=== PATIENT | male | born 1990 | race Two or more races ===

== ENCOUNTER 2022-08-15 09:59 | Emergency (ER) | payer SELFPAY ==
[~2022-08-15] VITALS: Ht 162.6 cm; Wt 83.9 kg
--- NOTE | 2022-08-15 10:11 | NUR ---
WALKED INTO ER C/O NAUSEA AND VOMITING S/P DRINKING ALCOHOL FOR THE PAST 2 DAYS. PT IS BREATHING EVEN AND UNLABORED. STEADY GAIT. AAOX4. CONNECTED TO THE MONITOR. AWAITING MD ALVARADO
--- NOTE | 2022-08-15 10:28 | NUR ---
AT BEDSIDE FOR EVAL
[2022-08-15] MEDS ORDERED: ONDANSETRON HCL/PF 4 MG/2 ML VIAL IVP ONE (10:30)
[2022-08-15] MEDS ORDERED: FAMOTIDINE/PF INJ 20 MG/2 ML VIAL IV ONE ×2 (10:30→10:33)
[2022-08-15] MEDS ORDERED: IV NS 0.9% 1,000 ML BAG IV ONE (10:30)
[2022-08-15] MEDS ORDERED: LORAZEPAM INJ 2 MG/ML VIAL IV ONE (10:30)
[2022-08-15] MEDS ORDERED: ONDANSETRON HCL/PF 4 MG/2 ML VIAL ONE (10:32)
[2022-08-15] MEDS ORDERED: LORAZEPAM INJ 2 MG/ML VIAL ONE (10:33)
--- NOTE | 2022-08-15 10:50 | NUR ---
ESTABLISHED IV ACCESS 18G RIGHT WRIST. BLOOD DRAWN AND SENT TO LAB.
[2022-08-15 11:14] LABS: ALBUMIN 4.6 g/dL (3.4-5.0); BASOPHILS # (AUTO) 0.1 K/uL (0.0-0.2); BASOPHILS % (AUTO) 0.6 % (0.0-2.0); BILIRUBIN,DIRECT 0.4 mg/dL (0.0-0.2); BILIRUBIN,TOTAL 2.9 mg/dL (0.2-1.0); CALCIUM, SERUM 9.6 mg/dL (8.5-10.1); CREATININE 0.9 mg/dL (0.6-1.3); EOSINOPHILS % (AUTO) 0.2 % (0.0-6.0); HEMATOCRIT 46 % (39-51); HEMOGLOBIN 15.7 g/dL (13.5-17.5); LYMPHOCYTES # (AUTO) 2.1 K/uL (0.8-4.8); LYMPHOCYTES % (AUTO) 19.3 % (20.0-44.0); MEAN CORPUSCULAR HGB CONC 34 g/dl (31.0-36.0); MEAN CORPUSCULAR VOLUME 89 fL (80-96); MONOCYTES # (AUTO) 0.9 K/uL (0.1-1.30); MONOCYTES % (AUTO) 8.2 % (2.0-12.0); NEUTROPHILS # (AUTO) 7.9 K/uL (1.8-8.9); NEUTROPHILS % (AUTO) 71.7 % (43.0-81.0); PLATELET COUNT (AUTO) 206 K/uL (150-450); POTASSIUM 3.2 mmol/L (3.5-5.1); RED BLOOD CELL COUNT(AUTO) 5.16 MIL/uL (4.5-6.0); TOTAL PROTEIN, SERUM 7.8 g/dL (6.4-8.2)
[2022-08-15] MEDS ORDERED: ONDA4TAB5 PO (12:47)
[2022-08-15] MEDS ORDERED: CHLO25CA22 PO (12:47)
--- NOTE | 2022-08-15 12:52 | NUR ---
Patient discharged to home in stable condition. Written and verbal after care instructions given. Patient verbalizes understanding of instruction. IV removed. Catheter intact and site benign. Pressure and 4x4 applied to site. No bleeding noted.
[2022-08-15 12:56] VITALS: BP 132/88
== END 2022-08-15 12:57 | disposition home or self-care (01) ==
LOC: ER 10:01
DX: K29.60 Other gastritis without bleeding (principal); Z79.899 Other long term (current) drug therapy; Z60.2 Problems related to living alone
CPT/HCPCS: 99284; 96374; 96375; 96361; 85025; 80048; 83690; 80076; 83735; 36415; J2060; J3490; J2405; J7030